=== PATIENT | male | born 1975 | race Two or more races ===

== ENCOUNTER 2023-08-25 07:00 | Day surgery (SDC) | payer MEDICAID ==
[2023-08-19 14:34] LABS: Urine Bacteria None Seen /hpf (None Seen)
[2023-08-19 14:55] LABS: Basophils # (auto) 0 10 ^3/uL (0-0.2); Basophils % (auto) 0.6 % (0.0-2.0); Eosinophils # (auto) 0.2 10 ^3/uL (0-0.8); Eosinophils % (auto) 2.7 % (0.0-7.0); Hematocrit 43.3 % (41.0-53.0); Hemoglobin 14.7 g/dL (13.5-17.5); Lymphocytes # (auto) 2.9 10 ^3/uL (0.4-5.4); Lymphocytes % (auto) 39.9 % (10.0-50.0); Mean Corpuscular Hemoglobin 29.5 pg (28.0-32.0); Monocytes # (auto) 0.6 10 ^3/uL (0-1.3); Monocytes % (auto) 7.8 % (0.0-12.0); Neutrophils # (auto) 3.5 10 ^3/uL (1.6-8.6); Nucleated Red Blood Cells % 0.1 %; Red Blood Cells 4.97 10^6/uL (4.5-5.90); Red Cell Distribution Width 13.2 % (11.8-14.3); White Blood Cell 7.2 10^3/uL (4.4-10.8)
[2023-08-19 15:01] LABS: Urine Blood Negative /uL (Negative); Urine Clarity Clear (Clear); Urine Color Light-Yellow (Yellow); Urine Protein, UAD Negative (Negative); Urine Specific Gravity 1.036 (1.001-1.035); Urine Urobilinogen Normal (Negative); Urine WBC <1 /hpf (0 - 3)
[2023-08-19 15:08] LABS: INR 1.01 (0.9-1.15); Partial Thromboplastin Time 26.7 SEC (24.5-34.5); Prothrombin Time 10.6 sec (9.3-11.8)
[2023-08-19 15:20] LABS: Alanine Aminotransferase 44 U/L (7-40); Alkaline Phosphatase 121 U/L (46-116); Anion Gap 8 (5-15); BUN/Creatinine Ratio 15.4 (10.0-20.0); Blood Urea Nitrogen 12 mg/dL (9-23); Calcium 9.2 mg/dL (8.5-10.1); Carbon Dioxide 25 mmol/L (20-30); Chloride 105 mmol/L (98-107); Glucose 286 mg/dL (74-106); Potassium 3.9 mmol/L (3.5-5.1); Sodium 138 mmol/L (136-145)
[2023-08-19 15:21] LABS: Albumin 4.3 g/dL (3.2-4.8); Aspartate Aminotransferase 25 U/L (13-40)
[2023-08-19 15:22] LABS: Bilirubin, Total 0.6 mg/dL (0.2-1.0); Total Protein 6.6 g/dL (5.7-8.2)
[~2023-08-25] VITALS: Ht 175.3 cm; Wt 99.8 kg
[~2023-08-25 07:00] MED LIST: CALC280T PO; GLIP10TA9 PO; INSUINJ37 SC; LISI-285 PO; METF-490 PO; ROSU10TA16 PO; SITA100T7 PO
[2023-08-25] MEDS ORDERED: fentaNYL CITRATE 100 MCG/2 ML VL ONE (08:49)
[2023-08-25] MEDS ORDERED: MEPERIDINE HCL (25 MG/ML) 1ML VIAL ONE (08:50)
[2023-08-25] MEDS ORDERED: MIDAZOLAM HCL 2MG/2ML 2ml VIAL (1mg/ml) ONE (08:50)
[2023-08-25 09:13] VITALS: PULSE 72; RESP 14; O2SAT 96
[2023-08-25] MEDS ORDERED: PROPOFOL 10 MG/ML 20 ML IV ONE (09:13)
[2023-08-25] MEDS ORDERED: DexAMETHasone SOD PHOS 10MG/1ML VIAL INJ ONE (09:13)
[2023-08-25 09:50] VITALS: BP 116/89; PULSE 66; RESP 15; O2SAT 96
== END 2023-08-25 09:50 | disposition home or self-care (01) ==
LOC: GI 07:00
PROVIDERS: ATTEND Internal Medicine Gastroenterology
DX: Z12.11 Encounter for screening for malignant neoplasm of colon (principal); D12.2 Benign neoplasm of ascending colon; K64.8 Other hemorrhoids; I10 Essential (primary) hypertension; E11.9 Type 2 diabetes mellitus without complications; E78.5 Hyperlipidemia, unspecified; Z79.4 Long term (current) use of insulin; Z79.84 Long term (current) use of oral hypoglycemic drugs; Z79.899 Other long term (current) drug therapy; Z90.49 Acquired absence of other specified parts of digestive tract; Z98.890 Other specified postprocedural states
CPT/HCPCS: 36415; 45380; 80053; 81001; 82962; 85025; 85610; 85730; 88305; J1100; J2175; J2250; J2704; J3010; J7030